=== PATIENT | female | born 1985 | race Caucasian/White ===

== ENCOUNTER 2025-09-08 08:02 | Outpatient (AMB) | payer OTHER, SELFPAY ==
--- OUTSIDE RECORDS SUMMARY | 2025-09-08 08:06 | XMS_ITS | Encounter Summary ---
Author Organization [facility] Prior to 07/22/2024 Address [address] [place] [address] Care Team Providers Care Income Tax Analyst Name Role Phone Rico Hernadez MD Primary Care Provider [phone] Reason for Visit * Reason Onset Date Comments APPOINTMENT 03/28/202003/30 Encounter Details Date Type Department Care Team Description 03/28/2020 Telephone Adult Medicine [address] [address] Rico Hernadez MD [address] [place] [address] APPOINTMENT (03/30) Social History Tobacco Use Types Packs/Day Years Used Date Smoking Tobacco: Never Smokeless Tobacco: Never Alcohol Use Standard Drinks/Week Comments Yes 0 (1 standard drink = 0.6 oz pur e alcohol) occ Sex Assigned at Date Recorded Not on file documented as of this encounter Miscellaneous Notes * Telephone Encounter - Margot Shetty - 03/28/2020 4:13 PM EDT FYI- The patient has been prescribed fluoxetine (PROZAC) 20 MG capsule by her previous OBGYN provider. That provider has left and the OBGYN office wants the patient to start getting the medication from her PCP. The patient is scheduled for a televisit on 03/[address] Hernadez @ 8:15 documented in this encounter Plan of Treatment Not on file documented as of this encounter Visit Diagnoses Not on filedocumented in this encounter Care Teams Income Tax Analyst Relationship Specialty Start Date End Date Rico Hernadez MD [address] [place] [id number] PCP - General 02/09/11 documented as of this encounter
--- OUTSIDE RECORDS SUMMARY | 2025-09-08 08:06 | XMS_ITS | Encounter Summary ---
Author Organization [facility] Prior to 07/22/2024 Address [address] [place] [address] Care Team Providers Care Boot Turner Name Role Phone Rico Hernadez MD Primary Care Provider [phone] Encounter Details Date Type Department Care Team Description 10/02/2021 Orders Only Medical Records [address] [place] [address] Chris Estrada MD [address] [place] [address] Social History Tobacco Use Types Packs/Day Years Used Date Smoking Tobacco: Never Smokeless Tobacco: Never Alcohol Use Standard Drinks/Week Comments Yes 0 (1 standard drink = 0.6 oz pur e alcohol) occ Sex Assigned at Date Recorded Not on file documented as of this encounter Plan of Treatment Not on file documented as of this encounter Procedures Procedure Name Priority Date/Time Associated Diagnosis Comments OUTSIDE LAB Routine 10/02/2021 documented in this encounter Results * OUTSIDE LAB (10/02/2021) Chris Estrada MD LAB documented in this encounter Visit Diagnoses Not on filedocumented in this encounter Care Teams Boot Turner Relationship Specialty Start Date End Date Rico Hernadez MD [address] [place] [address] PCP - General 02/09/11 documented as of this encounter
--- OUTSIDE RECORDS SUMMARY | 2025-09-08 08:06 | XMS_ITS | Encounter Summary ---
Author Organization [facility] Prior to 07/22/2024 Address [address] [place] [address] Care Team Providers Care Pin Puller Name Role Phone Rico Hernadez MD Primary Care Provider [phone] Encounter Details Date Type Department Care Team Description 10/08/2021 Orders Only Medical Records [address] [place] [address] Chris Estrada MD [address] [place] [address] Social History Tobacco Use Types Packs/Day Years Used Date Smoking Tobacco: Never Smokeless Tobacco: Never Alcohol Use Standard Drinks/Week Comments Yes 0 (1 standard drink = 0.6 oz pur e alcohol) occ Sex Assigned at Date Recorded Not on file documented as of this encounter Progress Notes * Juanita Estrada MD - 10/13/2021 12:16 PM EST Dear Stacy,The biopsies of your duodenum taken during your endoscopy are within normal limits.Please follow up in order to discuss these findings with the referring physician at [facility] gastroenterology clinic.I would like to personally thank you for allowing us to take care of you. Please don't hesitate to call us for any questions or concerns. RegardsJr MD Board Certified Gastroenterology and Internal Medicine Transplant Hepatology [facility] documented in this encounter Plan of Treatment Not on file documented as of this encounter Procedures Procedure Name Priority Date/Time Associated Diagnosis Comments OUTSIDE PATHOLOGY Routine 10/04/2021 documented in this encounter Results * OUTSIDE PATHOLOGY (10/04/2021) H Trev Estrada MD OUTSIDE LAB documented in this encounter Visit Diagnoses Not on filedocumented in this encounter Care Teams Pin Puller Relationship Specialty Start Date End Date Rico Hernadez MD [address] [place] [address] PCP - General 02/09/11 documented as of this encounter
--- OUTSIDE RECORDS SUMMARY | 2025-09-08 08:06 | XMS_ITS | Encounter Summary ---
Author Organization [facility] Prior to 07/22/2024 Address [address] [place] [address] Care Team Providers Care Construction Person Name Role Phone Rico Hernadez MD Primary Care Provider [phone] Encounter Details Date Type Department Care Team Description 02/12/2011 Release of Information Medical Records [address] [place] [id number] Abstract, Provider Social History Tobacco Use Types Packs/Day Years Used Date Smoking Tobacco: Never Alcohol Use Standard Drinks/Week Comments Yes 0 (1 standard drink = 0.6 oz pur e alcohol) occ Sex Assigned at Date Recorded Not on file documented as of this encounter Plan of Treatment Not on file documented as of this encounter Visit Diagnoses Not on filedocumented in this encounter Care Teams Construction Person Relationship Specialty Start Date End Date Rico Hernadez MD [address] [place] [address] PCP - General 02/09/11 documented as of this encounter
--- OUTSIDE RECORDS SUMMARY | 2025-09-08 08:06 | XMS_ITS | Encounter Summary ---
Author Organization [facility] Prior to 07/22/2024 Address [address] [place] [address] Care Team Providers Care Needle Process Felt Goods Supervisor Name Role Phone Rico Hernadez MD Primary Care Provider [phone] Reason for Visit * Reason Comments E-prescribe Rx Request Encounter Details Date Type Department Care Team Description 10/13/2019 Refill Adult Medicine [address] [address] Rico Hernadez MD [address] [place] [address] E-prescribe Rx Request Social History Tobacco Use Types Packs/Day Years Used Date Smoking Tobacco: Never Smokeless Tobacco: Never Alcohol Use Standard Drinks/Week Comments Yes 0 (1 standard drink = 0.6 oz pur e alcohol) occ Sex Assigned at Date Recorded Not on file documented as of this encounter Miscellaneous Notes * Telephone Encounter - Milagros Batista MD - 10/13/2019 1:05 PM EST Signed, thank you * Telephone Encounter - Evelyn Sun M.A. - 10/13/2019 10:36 AM EST Was just seen 10/01/19, where issue was addressed * Telephone Encounter - Socorro Young M.A. - 10/13/2019 9:55 AM EST Date of last office visit was 06/16/19. Lab Results Component Value Date NA 140 01/03/2019 K 4.0 01/03/2019 CO2 25 01/03/2019 CL 107 01/03/2019 BUN 12 01/03/2019 CREAT 0.84 01/03/2019 GLU 83 01/03/2019 CA 8.6 01/03/2019 GFR > 60 01/03/2019 * Telephone Encounter - Daisy Michael - 10/13/2019 9:41 AM EST Patient would like script to be: E-PRESCRIBED/FAXED TO PHARMACY WHEN WAS THE PATIENT'S LAST APPOINTMENT IN ADULT MEDICINE? 06/16/19 WHEN WAS THE LAST TIME THE PATIENT SAW THEIR PCP? 01/03/19 Does patient have an upcoming appointment? NO (THE MEDICATION REQUESTED IS ON THE MED LIST ABOVE) All of the medications requested were on the CURRENT MEDS list Did you check the Pharmacy information above?: YES Patient wants: 90 -day supply Is this a mail order prescription request ? NO If the refill is from a FAXED refill request what is the RX # listed on the fax? N/A Patients current insurance carrier is: Payor: [employer] [facility] [employer] / Plan: HMO $20 NORDEN 1 / Product Type: HMO [id number] documented in this encounter Plan of Treatment Not on file documented as of this encounter Visit Diagnoses Not on filedocumented in this encounter Care Teams Needle Process Felt Goods Supervisor Relationship Specialty Start Date End Date Rico Hernadez MD [address] [place] [address] PCP - General 02/09/11 documented as of this encounter
--- OUTSIDE RECORDS SUMMARY | 2025-09-08 08:06 | XMS_ITS | Encounter Summary ---
Author Organization [employer] [facility] Prior to 07/22/2024 Address [address] [place] [address] Care Team Providers Care Boat Rigger Name Role Phone Rico Hernadez MD Primary Care Provider [phone] Encounter Details Date Type Department Care Team Description 05/24/2018 Night Triage Doc Medical Records [address] [place] [address] Abstract, Provider Social History Tobacco Use Types [...] on filedocumented in this encounter Care Teams Boat Rigger Relationship Specialty Start Date End Date Rico Hernadez MD [address] [place] [id number] PCP - General 02/09/11 documented as of this encounter
--- OUTSIDE RECORDS SUMMARY | 2025-09-08 08:06 | XMS_ITS | Encounter Summary ---
Author Organization [facility] Prior to 07/22/2024 Address [address] [place] [address] Care Team Providers Care Hair Preparer Name Role Phone Rico Cho MD Primary Care Provider [phone] Reason for Visit * Reason Onset Date Comments er follow up 02/10/2011 Encounter Details Date Type Department Care Team Description 02/10/2011 Telephone Adult Medicine [address] [address] Rico Cho MD [address] [place] [address] er follow up Social History Tobacco Use Types Packs/Day Years Used Date Smoking Tobacco: Never Assessed Sex Assigned at Date Recorded Not on file documented as of this encounter Miscellaneous Notes * Telephone Encounter - Rebecca Mcmullen - 02/10/2011 10:37 AM EDT Spoke with pt she was seen at [facility] [place] [place] [facility] and had EKG and CXR done and was told she has acid reflux, andgiven Prilosec for A script, also given Mylanta with effect, she is drinking gingerale which causesher to burp and she feels better Pt scheduled an appt with PCP for Wed. Am Please obtain ER discharge summary * Telephone Encounter - Sarah Bustillo - 02/10/2011 10:19 AM EDT Symptoms patient is presenting: PT WAS SEEN AT [facility] ER FOR CHEST PAIN TODAY AND WAS TOLD TO FOLLOW UP WITH PRIMARY DOCTOR TODAY. PT IS NEW PATIENT OF DR CHO. How long has patient had these symptoms?: PCP: Rico Cho MD Payor: [facility] Plan: O $20 [employer] [id number] Product Type: PPO [id number] documented in this encounter Plan of Treatment Not on file documented as of this encounter Visit Diagnoses Not on filedocumented in this encounter Care Teams Hair Preparer Relationship Specialty Start Date End Date Rico Cho MD [address] [place] [address] PCP - General 02/09/11 documented as of this encounter
--- OUTSIDE RECORDS SUMMARY | 2025-09-08 08:06 | XMS_ITS | Clinical Summary ---
Author Organization [address] [facility] Building Address [address] [place] [phone] Phone Care Team Providers Care Welding Process Engineer Name Role Phone Rico Hernadez MD Primary Care Provider [phone] Allergies Active Allergy Reactions Criticality Noted Date Comments Gabapentin Other 11/18/2018 Hydrocodone-Acetaminop hen Nausea And Vomiting 07/09/2012 Other 05/21/2015 Stuffy nose Prednisone Other 10/01/2019 Mood swings and insomnia Medications loratadine (CLARITIN) 10 mg tablet Take 1 tablet (10 mg total) by mouth 1 (one) time each day. Active omeprazole (PriLOSEC) [address] Macdonald ns:Gastro-esopha geal reflux disease without esophagitis TAKE 1 CAPSULE BY MOUTH EVERY DAY 90 capsule 1 04/18/2025 Active FLUoxetine (PROzac) 20 mg capsule Take 1 capsule (20 mg total) by mouth 1 (one) time each day. 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 Trigeminal neuralgia of left side of face 2017 GERD (gastroesophageal reflux disease) 1 Immunizations Immunization Administration Dates Next Due Pfizer (ages 12 & older) Bivalent, COVID-19 10/0 04/2022 Pfizer SARS-CoV-2 COVID-19, mRNA, LNP-S, preservative free 08/30/2021,11/12/2020,10/22/2020 Tdap Tetanus diptheria acell ular pertussis (Boostrix; Adacel) 7yo and older 05/13/2017 Surgical History Surgery Date Site/Laterality Comments WISDOM TOOTH EXTRACTION PROCEDURE: HISTORICAL WISDOM TEETH EXTRACTION CHOLECYSTECTOMY PROCEDURE: ME LAPAROSCOPY SURG CHOLECYSTECTOMY Family History Medical History Relation Name Comments Allergies Mother Relation Name Status Comments Brother Alive Father Alive Mother Alive Social History Tobacco Use Types Packs/Day Years Used Date Smoking Tobacco: Never Smokeless Tobacco: Never Alcohol Use Standard Drinks/Week Comments Yes 0 (1 standard drink = 0.6 oz pur e alcohol) Housing Instability Answer Date Recorde d Are you worried that in the next 2 months you may not have stable housing? No 03/28/2025 Food Access & Nutrition Answer Date Rec orded Do you have access to a vari ety of food including fruits and vegetables? Yes 03/28/2025 Access to Healthcare Answer Date Record ed Within the last 3 months, ho w many times did you visit the emergency department for your medical care? 0 03/28/2025 Health Literacy Answer Date Recorded How often do you need to hav e someone help you when you read instructions, pamphlets, or other written material from your doctor or pharmacy? Never 03/28/2025 Caregiver: How often do you need to have someone help you when you read instructions, pamphlets, or other written material from your doctor or pharmacy? Not on file 03/28/2025 Financial Risk Answer Date Recorded How hard is it for you to pa y for the very basics like food, housing, medical care, and air conditioning / heating? Not very hard 03/28/2025 Transportation Answer Date Recorded Has the lack of transportati on kept you from meetings, work, or from getting things needed for daily living? No Has the lack of transportati on kept you from medical appointments or from getting medications? No 03/28/2025 Social Isolation Answer Date Recorded How often do you feel lonely or isolated from th ose around you? Rarely 03/28/2025 Food Risk Answer Date Recorded Within the past 12 months we worried whether our food would run out before we got money to buy more. Never true 03/28/2025 Within the past 12 months th e food we bought just didn't last and we didn't have money to get more. Never true 03/28/2025 Dependent Care Answer Date Recorded Do you need help finding or paying for care for your loved ones. For example, child and family services worker or elderly care for an older adult? No 03/28/2025 Education Answer Date Recorded Do you think completing more education or training, like finishing a GED, going to college, or learning a trade, would be helpful for you? No 03/28/2025 Employment and Income Answer Date Recor ded During the last four weeks, have you been actively looking for work? No 03/28/2025 Living Situation Answer Date Recorded What is your living situation? Unrecognized valu e 03/28/2025 Comments Unknown Sex and Gender Information Value Date Recorded Sex Assigned at Not on file Legal Sex Female 4:10 PM EST Gender Identity Not on file Sexual Orientation Not on file Last Filed Vital Signs Vital Sign Reading Time Taken Comments Blood Pressure 96/66 03/29/2025 8:33 AM EDT Pulse 78 03/29/2025 8:33 AM EDT Temperature - - Respiratory Rate - - Oxygen Saturation - - Inhaled Oxygen Concentration - - Weight 106 kg (233 lb) 03/29/2025 8:33 AM EDT Height 175.3 cm (5' 9 ) 03/29/2025 8:33 AM EDT Body Mass Index 34.41 03/29/2025 8:33 AM EDT Plan of Treatment Upcoming Encounters Date Type Department Care Team (Late st Contact Info) Description 04/02/2026 8:30 AM EDT Office Visit Internal Medicine - [address] [phone] Rico Hernadez MD [address] [place] [address] Health Maintenance Due Date Last Done Comments Breast Cancer Screening 1985 Hepatitis B Vaccines (1 of 3 - 19+ 3-dose series) 01/03/2004 Cervical Cancer Screening: Pap Smear 2006 HPV Vaccines (1 - 3-dose SCDM series) 01/03/2012 HIV Screening 08/20/2022 Hepatitis C Screening 08/20/2022 COVID-19 Vaccine ( season) 2025 11/21/2023, 06/28/2022, 08/30/2021, Additional history exists Influenza Vaccine (#1) 2025 Social Influencers of Health Screening 03/28/2026 03/28/2025 DTaP,Tdap,and Td Vaccines (2 - Td or Tdap) 05/13/2027 05/13/2017 Cholesterol Screening (Lipid Panel) 03/29/2030 03/29/2025, 03/28/2024 RSV Immunization Adult Patients (1 - 1-dose 75+ series) 01/03/2060 Depression Screening Completed 03/28/2025 HIB Vaccines Aged Out No longer eligi ble based on patient's age to complete this topic Hepatitis A Vaccines Aged Out No long er eligible based on patient's age to complete this topic IPV Vaccines Aged Out No longer eligi ble based on patient's age to complete this topic MMR Vaccines Aged Out No longer eligi ble based on patient's age to complete this topic Meningococcal ACWY Vaccine Aged Out N o longer eligible based on patient's age to complete this topic Meningococcal B Vaccine Aged Out No l onger eligible based on patient's age to complete this topic Pneumococcal Vaccine: Pediatrics (0 to 5 Years) and At-Risk Patients (6 to 49 Years) Aged Out No longer eligible based on patient's age to complete this topic RSV Immunization Patients Under 20 months Aged Out No longer eligible based on patient's age to complete this topic Varicella Vaccines Aged Out No longer eligible based on patient's age to complete this topic Procedures Procedure Name Priority Date/Time Associated Diagnosis Comments LIPID PANEL WITH REFLEX TO DIRECT LDL Routine 03/29/2025 9:18 AM EDT Screening for hyperlipidemia from Last 3 Months or Most Recently Relevant to Health Maintenance Results * Lipid panel with reflex to direct LDL (03/29/2025 9:18 AM EDT) Cholesterol 159 0 - 200 mg/dL LAB CHEMISTRY METHOD 03/29/2025 3:55 PM EDT [facility] Triglycerides 83 0 - 150 mg/dL LAB CHEMISTRY METHOD 03/29/2025 3:55 PM EDT [facility] HDL 57 >=40 mg/dL LAB CHEMISTRY METHOD 03/29/2025 3:55 PM EDT [facility] LDL Calculated 85 0 - 100 mg/dL LAB CHEMISTRY METHOD 03/29/2025 3:55 PM EDT [facility] VLDL Cholesterol Ignacio 16.6 mg/dL LAB CHEMISTRY METHOD 03/29/2025 3:55 PM EDT [facility] Non HDL Chol. (LDL+VLDL) 102 <145 mg/dL LAB CHEMISTRY METHOD 03/29/2025 3:55 PM EDT [facility] Chol/HDL Ratio 2.8 0.0 - 4.4 LAB CHEMISTRY METHOD 03/29/2025 3:55 PM EDT [facility] Blood Venous blood specimen / Unknown Venipuncture / Unknown 03/29/2025 9:18 AM EDT 03/29/2025 9:18 AM EDT us Rico Hernadez MD LAB BLOOD ORDERABLES Final Res ult [facility] [address] [place] [address], from Last 3 Months or Most Recently Relevant to Health Maintenance Insurance [facility] Care Teams Welding Process Engineer Relationship Specialty Start Date End Date Rico Hernadez MD [address] [place] [id number] [facility] - General 02/09/11
--- OUTSIDE RECORDS SUMMARY | 2025-09-08 08:07 | XMS_ITS | Encounter Summary ---
Author Organization [facility] Prior to 07/22/2024 Address [address] [place] [address] Care Team Providers Care File Clerk Data Entry Name Role Phone Rico Hernadez MD Primary Care Provider [phone] Reason for Visit * Reason Onset Date Comments radiology 04/11/2016 Encounter Details Date Type Department Care Team Description [facility] [address] [place] [address] Karri Massey PA radiology Social History Tobacco Use Types Packs/Day Years Used Date Smoking Tobacco: Never Smokeless Tobacco: Never Alcohol Use Standard Drinks/Week Comments Yes 0 (1 standard drink = 0.6 oz pur e alcohol) occ Sex Assigned at Date Recorded Not on file documented as of this encounter Miscellaneous Notes * Telephone Encounter - Anna Friend M.A. - 04/11/2016 12:08 PM EDT Patient informed of message and verbalizes understanding. * Telephone Encounter - UYLIA [place] - 04/11/2016 12:03 PM EDT Please let pt know she needs updated xray of the right knee prior to seeing ortho - xray ordered * Telephone Encounter - Radha Sales - 04/11/2016 11:13 AM EDT Patient was referred to Mr. Massey and last time patient has had x-rays was 2 years ago. Please have new xrays ordered so we can schedule an appointment. documented in this encounter Plan of Treatment Not on file documented as of this encounter Results * X-RAY KNEE 3 VIEW - W/O INJURY (04/21/2016 11:08 AM EDT) 04/21/2016 11:2 8 AM EDT Impressions WHITE JASBIR OTHER EXTERNAL - 04/21/2016 11:30 AM EDT Impression: Normal study. Narrative ANAND MARTELL OTHER EXTERNAL - 04/21/2016 11:30 AM EDT Right knee series: History: Knee pain 3 views compared with 03/20/2014. No arthritis, focal bone pathology or soft tissue calcification is seen. No joint effusion is noted. Procedure Note El Del Toro MD - 04/21/2016 Right knee series: History: Knee pain 3 views compared with 03/20/2014. No arthritis, focal bone pathology orsoft tissue calcification is seen. No joint effusion is noted. Impression: Normal study. [facility] RADIOLOGY ANAND MARTELL OTHER EXTERNAL documented in this encounter Visit Diagnoses Diagnosis Knee swelling, right- Primary Knee swelling, right documented in this encounter Care Teams File Clerk Data Entry Relationship Specialty Start Date End Date Rico Hernadez MD [address] [place] [id number] PCP - General 02/09/11 documented as of this encounter
--- OUTSIDE RECORDS SUMMARY | 2025-09-08 08:07 | XMS_ITS | Encounter Summary ---
Author Organization [facility] Prior to 07/22/2024 Address [address] [place] [address] Care Team Providers Care Tapering Machine Operator Name Role Phone Rico Hernadez MD Primary Care Provider [phone] Encounter Details Date Type Department Care Team Description 04/03/2014 Automotive Buyer Report Medical Records [address] [place] [address] Milan Silverio MD [address] [address] Social History Tobacco Use Types Packs/Day Years [...] on filedocumented in this encounter Care Teams Tapering Machine Operator Relationship Specialty Start Date End Date Rico Hernadez MD [address] [place] [address] PCP - General 02/09/11 documented as of this encounter
--- OUTSIDE RECORDS SUMMARY | 2025-09-08 08:07 | XMS_ITS | Clinical Summary ---
Author Organization [facility] Prior to 07/22/2024 Address [address] [place] [address] Care Team Providers Care Customs Examiner Name Role Phone Rico Hernadez MD Primary Care Provider [phone] Allergies Active Allergy Reactions Severity Noted Date Comments Gabapentin OTHER 11/18/2018 Hydrocodone-Acetaminophe n 07/20/2024 Prednisone OTHER 10/01/2019 Mood swings and insomnia Seasonal Allergies 05/21/2015 Stuffy nose Hydrocodone-Acetaminophe n Nausea and Vomiting 07/09/2012 Medications Medication Sig Dispensed Refills Start Date End Date Status fluoxetine (PROZAC) 20 MG capsuleIndications:An xiety and depression TAKE 1 CAPSULE BY MOUTH EVERY DAY 90 Capsule 1 01/19/2024 Active omeprazole (PRILOSEC) 20 MG capsuleIndications:Ga stroesophageal reflux disease without esophagitis Take 1 Capsule by mouth daily. 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 03/30/2020 Generalized anxiety disorder 03/30/2020 Trigeminal neuralgia of left side of fac e 09/10/2018 GERD (gastroesophageal reflux disease) 0 02/12/2011 Resolved Problems Problem Noted Date Resolved Date COVID 02/22/2022 11/12/2022 Immunizations Name Administration Dates Next Due COVID-19 (Pfizer) Pt Reported 08/30/2021, 021,10/22/2020 Covid-19 Bivalent (Pfizer) 06/28/2022 Tdap 05/13/2017 Family History Medical History Relation Name Comments Allergies Mother Relation Name Status Comments Brother Alive Father Alive Mother Alive Social History Tobacco Use Types Packs/Day Years Used Date Smoking Tobacco: Never Smokeless Tobacco: Never Tobacco Cessation:Counseling Given: Not Answered Alcohol Use Standard Drinks/Week Comments Yes 0 (1 standard drink = 0.6 oz pur e alcohol) occ Sex Assigned at Date Recorded Not on file Last Filed Vital Signs Vital Sign Reading Time Taken Comments Blood Pressure 123/77 03/28/2024 3:53 PM EDT Pulse 84 03/28/2024 3:53 PM EDT Temperature 37.1 C (98.7 F) 08/31/2023 9:39 AM EST Respiratory Rate 16 03/25/2022 1:40 PM EDT Oxygen Saturation 96% 08/31/2023 9:39 AM EST Inhaled Oxygen Concentration - - Weight 110.6 kg (243 lb 12.8 oz) 03/28/2024 3:53 PM EDT Height 175.3 cm (5' 9 ) 03/28/2024 3:53 PM EDT Body Mass Index 36 03/28/2024 3:53 PM EDT Plan of Treatment Health Maintenance Due Date Last Done Comments BMI CHECK/ADVISE 09/21/2024 03/28/2024, 03/2023, 03/25/2022, Additional history exists MAMMOGRAM 2025 Covid-19 Vaccine (2022-2 4 season) 2025 06/28/2022, 08/30/2021, 11/12/2020, Additional history exists INFLUENZA (#1) 2025 CERVICAL CANCER SCREENING 09/30/20252022, 02/12/2021 (External Completion), 09/21/2010 (External Completion) BASELINE HEALTH EXAM 40-64 03/28/202603/28, 03/27/2023, 03/25/2022, Additional history exists DTAP/TDAP/TD (3 - Td or Tdap) 05/13/2027, 09/21/2011 (External Completion of Vaccination per patient) CHOLESTEROL SCREENING 03/28/2029 03/28/2024 , 03/27/2023, 05/03/2021, Additional history exists PNEUMOCOCCAL VACCINE FOR HIG H RISK PATIENTS (#1) 2050 Care Teams Customs Examiner Relationship Specialty Start Date End Date Rico Hernadez MD [address] [place] [id number] PCP - General 02/09/11
--- OUTSIDE RECORDS SUMMARY | 2025-09-08 08:07 | XMS_ITS | Encounter Summary ---
Author Organization [employer] [facility] Prior to 07/22/2024 Address [address] [place] [address] Care Team Providers Care Dining Room Host/Hostess Name Role Phone Rico Hernadez MD Primary Care Provider [phone] Encounter Details Date Type Department Care Team Description 07/08/2016 Release of Information Medical Records [address] [place] [id number] Abstract, Provider Social History Tobacco Use Types [...] on filedocumented in this encounter Care Teams Dining Room Host/Hostess Relationship Specialty Start Date End Date Rico Hernadez MD [address] [place] [address] [id number] PCP - General 02/09/11 documented as of this encounter
--- NOTE | 2025-09-08 10:12 | A.OFFVIS_ITS ---
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: Details: Start time: 9.58am, End time: 10.43am ?I spent 40 minutes speaking with the patient on the phone plus an additional 5 minutes reviewing and updating records for a total of 45 minutes HPI Comments Details: Previous weight loss efforts: Self diets and exercise Wakes up: 6.30am, Sleeps: 10.30pm Breakfast: 8am (toast with peanut butter) Lunch: 11am (chicken, rice and vegetables) Dinner: 6-7pm (as lunch) Snacks: 3pm (as lunch), Whey protein shake at 9pm Exercise: none Beverages: Coffee: 1-2 cup/d (Whey protein added), Tea: none, Soda: none, Juice: none, ETOH: 1/month PFSH Medical History (Updated 09/08/25 @ 10:38 by Andrea Kendrick MD) Anxiety Depression GERD (gastroesophageal reflux disease) BMI 34.0-34.9,adult Obesity Surgical History (Updated 05/24/25 @ 13:03 by Samantha Hickey CMA) Hx of cholecystectomy Family History (Updated 05/24/25 @ 09:28 by Samantha Hickey CMA) Mother No problems noted. Father No problems noted. Son No problems noted. Social History (Updated 05/24/25 @ 09:29 by Samantha Hickey CMA) Alcohol intake: current Alcohol intake frequency: holidays/special occasions only Patient Tobacco Use Status: Never used Tobacco Telehealth Telehealth Telehealth Platform: Telephone Location of provider rendering services: practice address Location of patient: address on file Patient Identification confirmed using: Name, : Yes Telehealth method: voice only Patient verbally consented to treatment: Yes Patient verbally consented to billing insurance company: Yes Patient informed of any privacy concerns related to visit: Yes Minutes spent on Phone/Video with Pt.: 45 Assessment & Plan Assessment & Plan (1) Obesity: Code(s): E66.9 - Obesity, unspecified Category: Medical Qualifiers: Obesity type: due to excess calories Obesity classification: adult class 1 (BMI 30 - 34.9) Serious obesity comorbidity presence: without serious comorbidity Body mass index: BMI 34.0-34.9 Qualified Code(s): E66.811 - Obesity, class 1; E66.09 - Other obesity due to excess calories; Z68.34 - Body mass index [BMI] 34.0-34.9, adult Plan: A) MEDICATIONS: 1. Weight loss medications: these can be used in conjunction with our lifestyle program or you may choose to use them without following a lifestyle program from my program but your own. One option is the Phentermine pill which is affordable as self pay option. It is well tolerated and most common side effects include blood pressure elevation, dry mouth, difficulty sleeping and heart palpitations. However, it can raise the blood pressure and it may not be the best option for you since you have high blood pressure already. It?s a temporary solution however and most patients tend to put the weight back once the medication is stopped. Your insurance does not cover the new weight loss shots. We also discussed that you can self pay for the weight loss injections and the cost is $249 for the first month and $499 for any other month thereafter. These payments go to the drug company directly and not to us. As we discussed, this is not a long goods drier solution, as most patients put all the weight back once they are off the medication. There is also an option to get generic versions from [facility] at cheaper rates but their efficacy and how they are manufactured is not that clear. B) LIFESTYLE PROGRAM THROUGH OUR JUSTINO: 2. You will receive a link of our software justino to generate an individualized nutritional and exercise plan specific for you. Please send me a screenshot of the plans you will generate Meal to include lean meat (beef, fish, pork, turkey, chicken), or belarusian yogurt, or egg whites, or beans with a salad with olive oil and fruits (berries, pears, apples, kiwi). Avoid salt, breads, potatoes, rice, pasta, desserts. ?3. If you choose shakes, each shake would be drunk slowly, like coffee in a period of 2 hours. ?4. If you choose bars, cut each bar in 4 pieces and eat each piece in 30min ?to make each bar last 2 hours. ?5. I emphasized the importance of measuring accurately the food portion and measure it when serving the food in plate ?6. The meal portions include a specific number of forks of meat and salad. You always eat the meat portion but you can replace up to half of salad/vegetables portion with rice, potatoes or pasta, or a fruit ?if you like. The less you do it the better weight loss will be. ?7. One full-size fork is what it can be scooped on the fork without falling aside and not what can be bit with the fork. Use regular forks like those you find in a typical restaurant. ?8.? Please buy the body composition scale we discussed and send me weight measurements as soon as possible and then once a week. Always include your diet and exercise plan. 9. The best exercise choice would be to use your treadmill at home that can track calories. You can create and exercise plan with the [employer] justino. ?10.?It is important of avoiding and for as long you use medications ?11. Goal is to lose at least 1.5-2lbs per week ?12. Goal to lose at least 10% of your weight, which is about 32lbs. Minimum weight goal: 200lbs before surgery 13. Please follow the diet plan exactly without any change. If you don't like something about the plan or you feel hungry you need to communicate with me so I can help you revise the plan. You should not change the plan yourself.
== END 2025-09-08 10:44 | disposition home or self-care (01) ==
LOC: HO.HBS 08:02
PROVIDERS: PCP Internal Medicine; Visit Provider Surgery
DX: E66.811 Obesity, class 1 (principal); E66.09 Other obesity due to excess calories; Z68.34 Body mass index [BMI] 34.0-34.9, adult
CPT/HCPCS: 99204